=== PATIENT | female | born 1990 | race Caucasian/White ===

== ENCOUNTER 2021-06-02 12:37 | Emergency (ER) | payer OTHER, SELFPAY ==
[2021-06-02 13:11] VITALS: BP 115/65; PULSE 76; RESP 18; TEMP 36.6; O2SAT 100
--- NOTE | 2021-06-02 13:17 | ED.GENADULT ---
HPI - General Adult General Chief complaint: Unspecified Stated complaint: MUTIPLE HORNET STINGS/ NO SOB Time Seen by Provider: 06/02/21 13:17 History of Present Illness HPI narrative: 30 yo sent from urgent care for hornet stings. She was using a wee Aimee when she accidentally hit the nest. She was stung numerous times on the upper and lower extremities. She has burning pain and hives in all extremities. She was given dexamethasone and Benadryl by the urgent care. No lip, tongue, throat swelling. No SOB, weakness, dizziness. No h/o serious allergic reactions. Related Data Allergies Allergy/AdvReac Type Severity Reaction Status Date / Time No Known Allergies Allergy Verified 06/02/21 13:35 Review of Systems Review of Systems: All systems reviewed & are unremarkable except as noted in HPI and below Cardiovascular: Cardiovascular: Denies chest pain Respiratory: Respiratory: Denies dyspnea [facility] Social History Social History (Updated 06/02/21 @ 20:22 by Juan Manuel Lam MD) Living arrangements: with family Gender identity (if verbalized by the patient): Female Sexual Orientation (if Verbalized by the Patient): Straight or Heterosexual Exam Const: General: healthy appearing, no acute distress and alert Orientation/consciousness: patient oriented x3 HENMT: Head: normal to inspection Neck: Neck: normal visual inspection and no lymphadenopathy Chest: Chest palpation & inspection: normal inspection of the chest Resp: Effort & Inspection: normal respiratory effort Auscultation: clear to auscultation bilaterally, no rales, no rhonchi and no wheezes Cardio: Jugular venous distension: no JVD Rate: regular rate Rhythm: regular rhythm Heart sounds: no murmurs GI: GI Palp: Yes Soft to palpation and No Tenderness to palpation present (GI) Skin: Rashes: rashes noted (Scattered wheels to trunk and extremities with areas of coalescence) Neuro: General: patient oriented x3 and moves all extremities Speech: normal speech Extrem: General: no edema Psych: Appearance: well kempt Affect: normal affect Course Vital Signs Vital signs: Vital Signs Temperature 36.6 C 06/02/21 13:11 Pulse Rate 76 06/02/21 13:11 Respiratory Rate 18 06/02/21 13:11 Blood Pressure 115/65 06/02/21 13:11 Pulse Oximetry 100 06/02/21 13:11 Temperature 36.6 C 06/02/21 13:11 Pulse Rate 87 06/02/21 15:00 Respiratory Rate 16 06/02/21 15:00 Blood Pressure 113/60 06/02/21 15:00 Pulse Oximetry 100 06/02/21 15:00 Medical Decision Making MDM Narrative Medical decision making narrative: No sign of anaphylaxis. Improved significantly with Epi. I will prescribe prednisone and have her continue benadryl at home. Medical Records Medical records reviewed: Yes I reviewed the external patient's medical records. Vital Signs Vital Signs: Vital Signs Temperature 36.6 C 06/02/21 13:11 Pulse Rate 76 06/02/21 13:11 Respiratory Rate 18 06/02/21 13:11 Blood Pressure 115/65 06/02/21 13:11 Pulse Oximetry 100 06/02/21 13:11 Temperature 36.6 C 06/02/21 13:11 Pulse Rate 87 06/02/21 15:00 Respiratory Rate 16 06/02/21 15:00 Blood Pressure 113/60 06/02/21 15:00 Pulse Oximetry 100 06/02/21 15:00 Discharge Plan Discharge Clinical Impression: Hornet sting Qualifiers: Encounter type: initial encounter Injury intent: accidental or unintentional Qualified Code(s): T63.451A - Toxic effect of venom of hornets, accidental (unintentional), initial encounter Patient Disposition: Home, Self-Care Condition: Stable Instructions: Insect Bite or Sting (ED) Prescriptions: New prednisone 20 mg tablet 60 mg PO DAILY 4 Days Qty: 12 RF: 0 Follow-up/Referrals: UNKNOWN,DOCTOR [Primary Care Provider] - Moreno Mcgee DO [Physician] -
[2021-06-02] MEDS: Please add drug allergy info to patient profile. 1 EACH XX (13:38)
[2021-06-02] MEDS: EPINEPHrine HCL INJ 1 MG/ML AMPUL 0.3 MG IM ×2 (13:39→14:39)
[2021-06-02] MEDS: FAMOTIDINE 20 MG TABLET PO (14:15)
--- NOTE | 2021-06-02 14:22 | PC.NURSE ---
rash less pronounced and less reddened. continues to deny sob or difficulty breathing.
[2021-06-02 15:00] VITALS: BP 113/60; PULSE 87; RESP 16; O2SAT 100
== END 2021-06-02 15:00 | disposition home or self-care (01) ==
PROVIDERS: Emergency Provider Emergency Medicine
DX: T63.451A Toxic effect of venom of hornets, accidental (unintentional), initial encounter (principal)
CPT/HCPCS: 96372; 99284; A9270; J0171